=== PATIENT | male | born 1990 ===

== ENCOUNTER 2019-12-19 22:08 | Emergency (ER) | payer SELFPAY ==
[2019-12-19 22:12] VITALS: BP 126/77; PULSE 69; RESP 18; TEMP 36.4; O2SAT 99; BMI 35.9
--- NOTE | 2019-12-19 22:16 | XRR_ITS ---
PROCEDURE INFORMATION: Exam: XR Left Knee Exam date and time: 12/19/2019 10:24 PM Age: 28 years old Clinical indication: Injury or trauma; Other: Dislocation left knee; Patella or knee; Injury date: 12/19/2019; Patient HX: Left knee pain TECHNIQUE: Imaging protocol: XR Left knee. Views: 3 views. COMPARISON: CR Knee 3 views, LEFT* [id number] 01/20/2015 10:38 PM FINDINGS: Bones/joints: Normal. Soft tissues: Normal. XR/XR knee LT 3V* [id number] IMPRESSION: No acute findings.
--- NOTE | 2019-12-19 22:16 | ED_ITS ---
HPI - Extremity Injury (Lower) General: Chief Complaint: Fall Stated Complaint: knee and leg pain Time Seen by Provider: 12/19/19 22:10 Source: patient Mode of arrival: ambulatory Limitations: no limitations History of Present Illness: HPI Narrative: 28-year-old male patient comes in today with injury to the left knee. Patient was pushing a cart into the freezer at work and slipped on some ice during twisting of the knee he fell. Patient has a history of previous dislocation of the knee. Patient stated at that time he did not do any surgery or further evaluation of the knee. Patient reports no pain at this time. Patient was given 100 mg of fentanyl in route to the ER. No obvious deformity or dislocation is noted at this time. Review of Systems General: Reports: 10 or more systems reviewed and unremarkable except in HPI and below Musc: Reports: extremity pain and joint pain Physical Exam Const: COMMON NORMALS: no acute distress and patient oriented x3 GENERAL APPEARANCE: cooperative HENMT: COMMON NORMALS: normocephalic and Normal external nose present HEAD & SCALP: normal to inspection and normocephalic NOSE: Normal external nose present MOUTH: Normal oral and palatal mucosa present Eye: GENERAL EYE: appearance normal, both eyes and all related structures Neck/C-Spine: COMMON NORMALS: full ROM Chest: COMMONS NORMALS: normal inspection of the chest Resp: COMMON NORMALS: normal respiratory effort EFFORT & INSPECTION: Yes able to speak in complete sentences Cardio: COMMON NORMALS: regular rate and regular rhythm RATE: regular rate RHYTHM: regular rhythm GI: COMMON NORMALS: non-tender Back/Pelvis: COMMON NORMALS: thoracic and lumbar spine normal to inspection Extremity: NARRATIVE EXTREMITY EXAM: Joint line tenderness to the knee. No obvious dislocation is noted. Distal left lower extremity pulses and sensation are intact. Neuro: COMMON NORMALS: patient oriented x3 and moves all extremities Psych: COMMON NORMALS: mental status grossly normal and cooperative Skin: COMMON NORMALS: no rashes or lesions noted GENERAL SKIN EXAM: no rashes or lesions noted Course Vital Signs: Vital signs: Vital Signs Temperature 97.6 F 12/19/19 22:12 Pulse Rate 69 12/19/19 22:12 Respiratory Rate 18 12/19/19 22:12 Blood Pressure 126/77 12/19/19 22:12 Pulse Oximetry 99 12/19/19 22:12 MDM - Extremity Injury (Lower) MDM Narrative: Medical decision making narrative: Patient presents with possible dislocation of the left knee. EMS reported that knee was dislocated. They had put the knee in a splint prior to arrival. He was intact and in alignment on arrival to the ER. Some joint line tenderness was noted. No obvious swelling was noted. Distal pulses and sensations were intact. Differential diagnosis includes but not limited to dislocation of the knee, internal derangement of the knee, ligament versus meniscal tear patient had previous injury to the knee 4 to 5 years ago with a dislocation at that time he had to have it reduced in the ER. Patient did not have it followed up with at that time. Patient states he is usually very careful with his knee and usually does not have any problems with it. This was the first time he had had go out of place since the initial injury. X-ray noted no dislocation and normal alignment. Reviewed the exam with patient with recommendations for follow-up with orthopedics for further evaluation. Patient needs evaluation to rule out ligamentous injury. Patient reported understanding. Discharge Plan Discharge Patient Disposition: Home Clinical Impression: Injury of knee, left Qualifiers: Encounter type: initial encounter Qualified Code(s): S89.92XA - Unspecified injury of left lower leg, initial encounter Condition: Stable Prescriptions: New diclofenac sodium 75 mg tablet,delayed release (DR/EC) 75 mg PO BID Qty: 14 RF: 0 Discharge Orders: Discharge Order (Routine); Ordered 12/19/19 Ordered By: Moris Meyer Discharge Diet: Usual diet Discharge Activity: Use walker/crutches as instructed Patient Instructions: Knee Immobilizer (ED) Activity Restrictions/Additional Instructions: Follow-up with orthopedist for further evaluation of the knee. Use crutches until he can bear weight comfortably on the knee. Continue with use of the knee immobilizer until cleared by orthopedist. Return to the emergency department as needed for new concerns. Stand Alone Forms: Work/School Release Coding Level of Care Code ED Joint Supervisor for Chelsey Rand Exam Comprehensive
[2019-12-19 23:04] VITALS: BP 134/82; PULSE 79; RESP 16; O2SAT 100
--- NOTE | 2019-12-22 10:51 | DCPLANNER ---
senior quality manager had message to schedule a follow up appointment for patient with ortho. senior quality manager called the ortho clinic, spoke with Pat, gave clinic patients information. senior quality manager was told that patients information would be printed and reviewed. Clinic will call patient with appointment information.
--- NOTE | 2019-12-24 13:29 | DCPLANNER ---
Francie from ortho called medical case manager telling medical case manager that when clinic called patient to schedule appointment that patient declined appointment at this time, will call clinic if appointment is needed.
== END 2019-12-19 23:07 | disposition home or self-care (01) ==
PROVIDERS: Emergency Provider Nurse Practitioner Family
DX: S89.92XA Unspecified injury of left lower leg, initial encounter (principal); W00.0XXA Fall on same level due to ice and snow, initial encounter; Y99.0 Civilian activity done for income or pay
CPT/HCPCS: 12345; 29530; 73562; 99281; 99283; E0114

== ENCOUNTER 2021-02-03 00:23 | Inpatient (IN) | payer SELFPAY ==
[2021-02-03 00:32] VITALS: BP 145/98; PULSE 85; RESP 16; TEMP 36.7; O2SAT 99; BMI 35.9
--- NOTE | 2021-02-03 00:43 | ED.C_ITS ---
HPI - Psych General: Chief Complaint: Psychiatric Symptoms Stated Complaint: SI Time Seen by Provider: 02/03/21 00:25 Source: patient Mode of arrival: ambulatory Limitations: no limitations History of Present Illness: HPI Narrative: 30-year-old male states he has been under extreme stress at home. He states that he lives with his brother and they have had increasing tension. He states he denies any Dr. Robbfig states that after the first flight he drove around for 2 hours contemplating suicide he states he said the [employer] parking lot thinking about killing himself and decided to come here to get help denies any previous suicide attempt is not on any psychiatric medications. Associated symptoms: Reports depression Review of Systems Const: Denies: fever(s), chills, body aches or change in appetite Eyes: Denies: blurry vision or eye discomfort ENMT: Denies: throat pain or dental pain Card: Denies: chest pain Resp: Denies: dyspnea GI: Denies: abdominal pain, nausea, vomiting or diarrhea : Denies: dysuria Musc: Denies: neck pain or back pain Skin/Breast: Denies: rash Neuro: Denies: headache(s) Psych: Reports: depression Timur/Lymph: Denies: easy bruising All/Imm: Denies: urticaria Physical Exam Const: COMMON NORMALS: no acute distress, patient oriented x3 and healthy appearing HENMT: COMMON NORMALS: normocephalic and atraumatic HEAD & SCALP: normocephalic and atraumatic Eye: COMMON NORMALS: Equal, round and reactive pupils present and EOMs intact bilaterally PUPIL: Yes Equal, round and reactive pupils present Neck/C-Spine: COMMON NORMALS: full ROM and supple Chest: COMMONS NORMALS: normal inspection of the chest and normal palpation of entire chest wall Resp: COMMON NORMALS: normal respiratory effort, No retractions, No use of accessory muscles and clear to auscultation bilaterally AUSCULTATION: clear to auscultation bilaterally Cardio: COMMON NORMALS: regular rate, regular rhythm and No murmurs present (Cardio) RATE: regular rate RHYTHM: regular rhythm GI: COMMON NORMALS: Normal to inspection, nondistended, normoactive bowel sounds present, Soft to palpation, non-tender and no masses PALPATION: Yes Soft to palpation Extremity: COMMON NORMALS: normal to inspection and full ROM Neuro: COMMON NORMALS: patient oriented x3, moves all extremities and no focal motor deficits Psych: COMMON NORMALS: mental status grossly normal, Normal thought process present and cooperative THOUGHT PROCESS: Normal thought process present Skin: COMMON NORMALS: no rashes or lesions noted and no wounds GENERAL SKIN EXAM: no rashes or lesions noted Course Vital Signs: Vital signs: Vital Signs Temperature 98.1 F 02/03/21 00:32 Pulse Rate 85 02/03/21 00:32 Respiratory Rate 16 02/03/21 00:32 Blood Pressure 145/98 02/03/21 00:32 Pulse Oximetry 99 02/03/21 00:32 MDM - Psych MDM Narrative: Medical decision making narrative: Patient presents here with suicidal ideation he is medically cleared I placed on a 96-hour hold I spoke to Dr. España and will admit here to the psychiatric [facility]. Lab Data: Labs: Lab Results 02/03/21 02/03/21 02/03/21 00:53 00:53 00:53 WBC 12.2 10^3/uL H 10 ^3/uL (4.0-10.0) RBC 5.93 10^6/uL H 10 ^6/uL (4.1-5.3) Hgb 15.9 g/dL g/dL (11.7-16.6) Hct 48.8 % % (42.0-52.0) MCV 82.3 fl fl (80-94) MCH 26.8 pg L pg (28.0-34.0) MCHC 32.6 g/dL g/dL (30.0-36.0) RDW 12.9 % % (12.1-15.1) Plt Count 352 10^3/cmm 10^3 /cmm (130-400) MPV 10.6 fL H fL (7.4-10.4) Neut % (Auto) 57.2 % % Lymph % (Auto) 30.6 % % [place] % (Auto) 8.6 % % Eos % (Auto) 2.9 % % Baso % (Auto) 0.5 % % Neut # (Auto) 7.01 10^3/uL 10^3 /uL (1.8-7.7) Lymph # (Auto) 3.7 10^3/uL 10^3/ uL (0.8-4.8) [place] # (Auto) 1.1 10^3/uL H 10^ 3/uL (0.2-0.9) Eos # (Auto) 0.4 10^3/uL 10^3/ uL (0.0-0.8) Baso # (Auto) 0.1 10^3/uL 10^3/ uL (0.0-0.1) Nucleated RBC % (a uto) 0 % % Nucleated RBCs # 0.0 /100WBC /100W BC Sodium 141 mmol/L mmol/L (136-145) Potassium 3.8 mmol/L mmol/L (3.5-5.1) Chloride 102 mmol/L mmol/L (98-107) Carbon Dioxide 29 mmol/L mmol/L (22-29) Anion Gap 13.8 (5-19) BUN 11 mg/dL mg/dL (6-20) Creatinine 0.8 mg/dL mg/dL (0.7-1.2) GFR Calculation 112.8 mL/min mL/m in (90-130) Glucose 76 mg/dL mg/dL (65-115) Calculated Osmolal ity 290 mOsm/kg mOsm/ kg (285-295) Calcium 8.7 mg/dL mg/dL (8.5-10.5) Total Bilirubin 0.2 mg/dL mg/dL (0.15-1.2) AST 26 U/L U/L (0-40) ALT 41 U/L U/L (0-41) Alkaline Phosphata se 95 IU/L IU/L (40-130) Total Protein 7.3 g/dL g/dL (6.6-8.7) Albumin 4.4 g/dL g/dL (3.5-5.2) Globulin 2.9 g/dL g/dL (1.3-4.6) Salicylates < 0.3 mg/dL L mg/ dL (3-10) Urine Opiates Scre en Negative ng/mL ng /mL (Negative) Acetaminophen < 5.0 ug/mL L ug/ mL (10-30) Ur Barbiturates Sc reen Negative ng/mL ng /mL (Negative) Ur Phencyclidine S crn Negative ng/mL ng /mL (Negative) Ur Amphetamines Sc reen Negative ng/mL ng /mL (Negative) U Benzodiazepines Scrn Negative ng/mL ng /mL (Negative) Urine Cocaine Scre en Negative ng/mL ng /mL (Negative) U Marijuana (THC) Screen Positive ng/mL H ng/mL (Negative) Ethyl Alcohol < 10 mg/dL mg/dL (0-10) Discharge Plan Discharge Patient Disposition: Admitted As Inpatient Clinical Impression: Suicidal ideation Condition: Stable Coding Level of Care Code ED Regional Telecommunications Specialist for Chelsey Fwd Exam Comprehensive
[2021-02-03] MEDS: LORazepam 2 mg Tablet PO (01:03)
[2021-02-03 01:05] LABS: Basophils # 0.1 10^3/uL (0.0-0.1); Basophils % 0.5 %; Eosinophils # 0.4 10^3/uL (0.0-0.8); Eosinophils % 2.9 %; Hematocrit 48.8 % (42.0-52.0); Hemoglobin 15.9 g/dL (11.7-16.6); Lymphocytes # 3.7 10^3/uL (0.8-4.8); Lymphocytes % 30.6 %; Mean Corpuscular HGB Conc 32.6 g/dL (30.0-36.0); Mean Corpuscular Hemoglobin 26.8 pg (28.0-34.0); Mean Corpuscular Volume 82.3 fl (80-94); Mean Platelet Volume 10.6 fL (7.4-10.4); Monocytes # 1.1 10^3/uL (0.2-0.9); Monocytes % 8.6 %; Neutrophils # 7.01 10^3/uL (1.8-7.7); Neutrophils % 57.2 %; Nucleated Red Blood Cells % 0 %; Platelet Count 352 10^3/cmm (130-400); Red Blood Count 5.93 10^6/uL (4.1-5.3); Red Cell Distribution Width 12.9 % (12.1-15.1); White Blood Count 12.2 10^3/uL (4.0-10.0)
[2021-02-03 01:22] LABS: Amphetamines Screen Urine Negative (Negative); Barbiturates Screen Urine Negative (Negative); Benzodiazepines Screen Urine Negative (Negative); Cocaine Screen Urine Negative (Negative); Opiate Screen Urine Negative (Negative); PCP Screen Urine Negative (Negative); THC Screen Urine Positive (Negative)
[2021-02-03 01:24] LABS: Alanine Aminotransferase 41 U/L (0-41); Albumin Level 4.4 g/dL (3.5-5.2); Alkaline Phosphatase 95 IU/L (40-130); Anion Gap 13.8 (5-19); Aspartate Amino Transferase 26 U/L (0-40); Blood Urea Nitrogen 11 mg/dL (6-20); Calcium 8.7 mg/dL (8.5-10.5); Carbon Dioxide 29 mmol/L (22-29); Chloride 102 mmol/L (98-107); Globulin 2.9 g/dL (1.3-4.6); Glomerular Filtration Rate 112.8 mL/min (90-130); Glucose 76 mg/dL (65-115); Osmolality Calculated 290 mOsm/kg (285-295); Potassium 3.8 mmol/L (3.5-5.1); Sodium 141 mmol/L (136-145); Total Bilirubin 0.2 mg/dL (0.15-1.2); Total Protein 7.3 g/dL (6.6-8.7)
[2021-02-03 01:28] LABS: Acetaminophen < 5.0 ug/mL (10-30); Alcohol Level < 10 mg/dL (0-10); Salicylate < 0.3 mg/dL (3-10)
[2021-02-03 02:54] VITALS: BP 125/72; PULSE 86; RESP 20; TEMP 36.6; O2SAT 100
[2021-02-03 02:59] VITALS: BP 140/96; PULSE 88; RESP 18; TEMP 36.6; O2SAT 95
[2021-02-03 06:00] VITALS: BP 129/79; PULSE 80; RESP 16; TEMP 36.7; O2SAT 96
[2021-02-03] MEDS: diclofenac 75 mg DR Tablet PO ×2 (10:27→17:39)
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
[2021-02-03] MEDS: nicotine 21 mg Patch 1 PATCH TRANSDERMA (12:12)
[2021-02-03 14:00] VITALS: BP 119/82; PULSE 81; RESP 18; TEMP 36.3; O2SAT 95
[2021-02-03] MEDS: nicotine 2 mg Gum BUCCAL (20:42)
[2021-02-03] MEDS: BuSPIRONE 10 mg Tablet 15 MG PO (21:27)
[2021-02-03 22:00] VITALS: BP 108/67; PULSE 87; RESP 17; TEMP 36.9; O2SAT 98
[2021-02-04 06:00] VITALS: RESP 17
[2021-02-04] MEDS: BuSPIRONE 10 mg Tablet 15 MG PO ×2 (09:11→21:11)
[2021-02-04] MEDS: diclofenac 75 mg DR Tablet PO ×2 (09:12→18:48)
--- NOTE | 2021-02-04 10:12 | W.PM.NPUPNS ---
Subjective NPU Subjective: Interval history: Patient presents today reporting that he is feeling little better. He reports that he did get some rest and that he believes medication might be helpful. We discussed seeing how he does over the next 24 hours and likely discharge by Sunday but possibly sooner if he is feeling better and safe to return home. 1 possibility he reports is that he could go to a friend's house as he is working with the social work team to assist with resources to assist with housing. As he is not sure returning to the home environment will be the best option for him to continue to do well once he leaves. Mental Status Exam MSE Comments: This is an obese, male, with fairly light brown skin, though he does not understand specifically his ethnicity that yields the dark skin, with hospital scrubs on, with appropriate grooming, and eye contact. No abnormal movements except for mild psychomotor retardation. Cooperative with exam in mild distress. Speech was decreased rate and volume. Mood described as a little better; affect congruent. Thought process, organized. Thought content: patient denied any suicidal or homicidal ideation, there were no delusions reported or noted, patient denied any auditory or visual hallucinations. Attention, concentration, and memory appear intact but were not formally tested. He is alert and oriented times three. Insight and judgment are fair, impulse control limited. Vitals/I&O/Wt Last Vital Signs Temp 98.4 F 02/03/21 22:00 Pulse 87 02/03/21 22:00 Resp 17 02/04/21 06:00 BP 108/67 02/03/21 22:00 Pulse Ox 98 02/03/21 22:00 Data NPU : 02/03/21 00:53 02/03/21 00:53 A&P Additional A&P Information (1) Suicidal ideation: (2) Anxiety: (3) Depression: (4) Sibling relational problem: (5) Cannabis abuse: Additional A&P Information This is a 30-year-old, [place] male, with a long history of trauma, but limited mental health treatment, who presents with anxiety, depression, cannabis use, and recent fight/conflict in his family that led to some suicidal thoughts, who presents open to some medication for his anxiety. RECOMMENDATION AND PLAN: 1. Continue current medication. Start Buspar 15 mg po bid. 2. Encourage individual, group, and milieu therapy. 3. Continue q-15 minute checks for safety. 4. Encourage sober living treatment after discharge, at the highest level of care, to which he is willing to commit. Involuntary Hold Information 96 Hour Hold: 96 Hour Involuntary Admission: Yes 96 Hour Hold Ending Date: 02/09/21 96 Hour Hold Ending Time: 00:53 Attestations NPU Medical Necessity Statement*: Inpatient hospitalization is medically necessary and the clinically appropriate intervention, at this time. We will monitor medications and make changes as indicated. Likely length of stay is 1-3 days. Coding Level of Care Code Acute Auto Fleet Manager for Chelsey Rand
[2021-02-04 14:00] VITALS: RESP 18
[2021-02-04] MEDS: loperamide 2 mg Capsule PO (20:13)
[2021-02-04 20:25] VITALS: BP 145/79; PULSE 61; RESP 16; TEMP 36.8; O2SAT 96
[2021-02-05 06:00] VITALS: BP 108/68; PULSE 72; RESP 16; TEMP 36.8; O2SAT 96
[2021-02-05] MEDS: diclofenac 75 mg DR Tablet PO (08:53)
[2021-02-05] MEDS: BuSPIRONE 10 mg Tablet 15 MG PO (08:54)
[2021-02-05] MEDS: nicotine 2 mg Gum BUCCAL (08:54)
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
[2021-02-05 12:11] VITALS: BP 108/68; PULSE 72; RESP 16; TEMP 36.8; O2SAT 96
== END 2021-02-05 12:15 | disposition home or self-care (01) | DRG 880 ==
LOC: ER 01:08 → NP 02:47
PROVIDERS: Admitting Provider Psychiatry & Neurology Psychiatry; Emergency Provider Emergency Medicine; Visit Provider Psychiatry & Neurology Psychiatry
DX: F41.9 Anxiety disorder, unspecified (principal); R45.851 Suicidal ideations; F32.A Depression, unspecified; F12.10 Cannabis abuse, uncomplicated; E66.9 Obesity, unspecified; Z68.35 Body mass index [BMI] 35.0-35.9, adult; Z63.8 Other specified problems related to primary support group; F17.210 Nicotine dependence, cigarettes, uncomplicated; Z62.819 Personal history of unspecified abuse in childhood
CPT/HCPCS: 80053; 80306; 80307; 85025; 97150; 97165; 99285

== ENCOUNTER 2021-04-24 09:40 | Emergency (ER) | payer SELFPAY ==
[2021-04-24 09:50] VITALS: BP 132/76; PULSE 81; RESP 18; TEMP 36.6; O2SAT 97; BMI 34.2
--- NOTE | 2021-04-24 10:13 | ED_ITS ---
HPI - Extremity Problem General: Chief complaint: Extremity Problem,Nontraumatic Stated complaint: Right hip pain Time Seen by Provider: 04/24/21 09:56 History of Present Illness: Patient is a 30-year-old male comes to the ED with lower back pain that radiates down into the right hip and right thigh. He has been dealing with the symptoms for the past 2 months. They have continued to progress and get worse. Last couple days he has had increased pain and hurts when he is up walking. Denies any bladder or bowel incontinence, weakness to lower extremities or any pelvic anesthesia. Associated symptoms: Deny chest pain, fever(s) or rash Review of Systems Const: Denies: fever(s), chills or fatigue Eyes: Denies: change in vision or eye discomfort ENMT: Denies: throat pain, odynophagia, nasal discharge or nasal congestion Card: Denies: chest pain, palpitations, edema, swelling of feet/ankles, dyspnea on exertion or orthopnea Resp: Denies: dyspnea, productive cough or non-productive cough GI: Denies: abdominal pain, nausea, vomiting, diarrhea, constipation or hematochezia : Denies: flank pain, difficulty urinating, dysuria or hematuria Musc: Denies: neck pain, back pain or extremity swelling Skin/Breast: Denies: rash or new lesions Neuro: Denies: headache(s), numbness in extremities or weakness in extremities PFS ED PFSH: Medical History (Updated 04/24/21 @ 10:28 by YEISON Navarro) No pertinent family history Surgical History (Updated 04/24/21 @ 10:25 by YEISON Navarro) No pertinent past surgical history Physical Exam Const: COMMON NORMALS: no acute distress, patient oriented x3 and alert GENERAL APPEARANCE: cooperative and comfortable HENMT: COMMON NORMALS: normocephalic HEAD & SCALP: normocephalic MOUTH: Normal oral and palatal mucosa present THROAT: posterior oropharynx normal and uvula midline Neck/C-Spine: COMMON NORMALS: supple GENERAL: Yes normal visual inspection Resp: COMMON NORMALS: normal respiratory effort, No retractions, No use of accessory muscles and clear to auscultation bilaterally AUSCULTATION: clear to auscultation bilaterally Cardio: COMMON NORMALS: regular rate, regular rhythm, S1 normal heart sound present, S2 normal heart sound present, No gallops present (Cardio), No clicks present (Cardio), No murmurs present (Cardio) and Peripheral pulses 2+ throughout RATE: regular rate RHYTHM: regular rhythm HEART SOUNDS: S1 normal heart sound present and S2 normal heart sound present PERIPHERAL PULSES: Peripheral pulses 2+ throughout GI: COMMON NORMALS: Normal to inspection, nondistended, normoactive bowel sounds present, Soft to palpation, non-tender and no masses PALPATION: Yes Soft to palpation : COMMON NORMALS: Yes no CVA tenderness BLADDER/KIDNEY EXAM: Yes no CVA tenderness Back/Pelvis: COMMON NORMALS: no CVA tenderness LUMBAR SPINE/LOWER BACK: Yes paraspinal muscle tenderness Lumbar paraspinal muscle tenderness: right Extremity: COMMON NORMALS: normal to inspection and no pedal edema Neuro: COMMON NORMALS: patient oriented x3 and moves all extremities SENSORIUM/ORIENTATION: Yes alert Skin: GENERAL SKIN EXAM: dry skin Course Vital Signs: Vital signs: Vital Signs Temperature 97.9 F 04/24/21 10:49 Pulse Rate 64 04/24/21 10:49 Respiratory Rate 14 04/24/21 10:49 Blood Pressure 112/61 04/24/21 10:49 Pulse Oximetry 97 04/24/21 10:49 MDM - Extremity (Nontraumatic) Medical Decision Making Patient is a 30-year-old male comes to the ED with right lumbar pain that radiates down her right hip and right upper leg patient denies any acute injury or trauma he has been dealing with this for the past 2 months. Appears in no acute distress. Denies any cauda equina symptoms. Vitals are stable. Patient was given a dose of Toradol, Solu-Medrol and Norflex while here in the ED. Patient diagnosed with sciatica and discharged home with a prescription for celebrex, prednisone and Flexeril. Follow-up with PCP in 7 to 10 days reevaluation. Return ED precautions given. Patient agreed with plan. Discharge Plan Discharge Patient Disposition: Home Clinical Impression: Sciatica Qualifiers: Laterality: right Qualified Code(s): M54.31 - Sciatica, right side Condition: Stable Prescriptions: New Celebrex 100 mg capsule 100 mg PO BID PRN (Reason: pain) Qty: 20 0RF cyclobenzaprine 10 mg tablet 10 mg PO BID PRN (Reason: muscle spasm and pain) Qty: 20 0RF prednisone 5 mg tablets,dose pack See Rx Instructions .ROUTE .COMPLEX Qty: 21 0RF Rx Instructions: prednisone 5 mg: take 8 tablets (40 mg) on Day 1; 7 tablets (35 mg) on Day 2; then decrease by 1 tablet every day until finished No Action diclofenac sodium 75 mg tablet,delayed release (DR/EC) 75 mg PO BID Qty: 14 0RF albuterol sulfate aerosol 2 puff inhalation BID PRN (Reason: Shortness Of Breath Or Wheezing) 0RF buspirone 10 mg Tablet 15 mg PO 0900,2100 30 Days Qty: 90 1RF Discharge Orders: Discharge ED (Routine); Ordered 04/24/21 Ordered By: Diego Sibley Discharge Diet: Regular Discharge Activity: Increase activity as tolerated Patient Instructions: Sciatica (ED), Lower Back Exercises (ED) Activity Restrictions/Additional Instructions: Follow-up with primary care physician as directed in 7 to 10 days reevaluation. Take medications as prescribed. Apply cold pack or heat on sore area to help with symptoms. Stretch lower back and daily. Return to the ER or your medical provider if condition worsens. Please read and understand discharge instructions. Thank you for choosing [facility] for your healthcare needs today. Please realize this is an emergency room and that we are providing you with a medical screening exam and this may not be complete and all inclusive of all the testing and or work up that you may need to determine your ailment or severity of your illness. It is very important that you follow up as instructed or that you return to the Emergency Department should you have concerns or if your condition changes or worsens in any way. Coding Level of Care Code ED Transfusion Aide for Chelsey Rand Exam Comprehensive
[2021-04-24] MEDS: ketorolac 60 mg/2 mL INJ IM (10:35)
[2021-04-24] MEDS: orphenadrine 30 mg/mL Inj 2 mL 60 MG IM (10:36)
[2021-04-24 10:48] VITALS: BP 112/61; PULSE 64; RESP 14; TEMP 36.6; O2SAT 97
[2021-04-24 10:49] VITALS: BP 112/61; PULSE 64; RESP 14; TEMP 36.6; O2SAT 97
== END 2021-04-24 10:45 | disposition home or self-care (01) ==
PROVIDERS: Emergency Provider Physician Assistant
DX: M54.31 Sciatica, right side (principal)
CPT/HCPCS: 96372; 99283; J1885; J2360; J2930

== ENCOUNTER 2021-09-05 13:20 | Emergency (ER) | payer SELFPAY ==
[2021-09-05 13:32] VITALS: BP 153/128; PULSE 83; RESP 22; TEMP 35.9; O2SAT 97; BMI 34.5
--- NOTE | 2021-09-05 13:45 | ED_ITS ---
HPI - Dental/Oral General: Chief complaint: Dental/Oral Stated complaint: Severe Mouth pain Time Seen by Provider: 09/05/21 13:49 History of Present Illness: Patient is a 30-year-old male comes to the ED with dental pain. Symptoms started approximate hour before arrival. Patient was eating some food and then felt some pain in his back right upper molar. He rates the pain currently a 10 out of 10 and it radiates up into right side of face and head. He has not taken anything for pain before coming to the ED. Associated symptoms: Denies fever(s) or odynophagia Review of Systems Const: Denies: fever(s), chills or fatigue Eyes: Denies: change in vision or eye discomfort ENMT: Reports: dental pain; Denies: throat pain, odynophagia, nasal discharge or nasal congestion Card: Denies: chest pain, palpitations, edema, swelling of feet/ankles, dyspnea on exertion or orthopnea Resp: Denies: dyspnea, productive cough or non-productive cough GI: Denies: abdominal pain, nausea, vomiting, diarrhea, constipation or hematochezia : Denies: flank pain, difficulty urinating, dysuria or hematuria Musc: Denies: neck pain, back pain or extremity swelling Skin/Breast: Denies: rash or new lesions Neuro: Denies: headache(s), numbness in extremities or weakness in extremities PFS ED PFSH: Medical History No pertinent family history Surgical History No pertinent past surgical history Physical Exam Const: COMMON NORMALS: no acute distress, patient oriented x3 and alert GENERAL APPEARANCE: cooperative HENMT: COMMON NORMALS: normocephalic HEAD & SCALP: normocephalic MOUTH: Normal oral and palatal mucosa present TEETH & GINGIVA: Yes abnormal tooth and associated gingiva upper right third molar tender and with associated gingival edema THROAT: posterior oropharynx normal and uvula midline Neck/C-Spine: COMMON NORMALS: supple GENERAL: Yes normal visual inspection Resp: COMMON NORMALS: normal respiratory effort, No retractions, No use of accessory muscles and clear to auscultation bilaterally AUSCULTATION: clear to auscultation bilaterally Cardio: COMMON NORMALS: regular rate, regular rhythm, S1 normal heart sound present, S2 normal heart sound present, No gallops present (Cardio), No clicks present (Cardio), No murmurs present (Cardio) and Peripheral pulses 2+ throughout RATE: regular rate RHYTHM: regular rhythm HEART SOUNDS: S1 normal heart sound present and S2 normal heart sound present PERIPHERAL PULSES: Peripheral pulses 2+ throughout GI: COMMON NORMALS: Normal to inspection, nondistended, normoactive bowel sounds present, Soft to palpation, non-tender and no masses PALPATION: Yes Soft to palpation : COMMON NORMALS: Yes no CVA tenderness BLADDER/KIDNEY EXAM: Yes no CVA tenderness Back/Pelvis: COMMON NORMALS: no CVA tenderness Extremity: COMMON NORMALS: normal to inspection Neuro: COMMON NORMALS: patient oriented x3 and moves all extremities SENSORIUM/ORIENTATION: Yes alert Skin: GENERAL SKIN EXAM: dry skin Course Vital Signs: Vital signs: Vital Signs Temperature 96.7 F L 09/05/21 13:32 Pulse Rate 83 09/05/21 13:32 Respiratory Rate 22 H 09/05/21 13:32 Blood Pressure 153/128 09/05/21 13:32 Pulse Oximetry 97 09/05/21 13:32 [facility] - Dental/Oral Medical Decision Making Patient is a 30-year-old male comes to the ED with dental pain. Vitals are stable. Patient appears nontoxic in no acute distress. He has some associated gingival edema and tenderness of the right upper third molar. Patient diagnosed with dental pain and discharged home with a prescription for clindamycin and Celebrex. He was told to follow-up with dentist as soon as possible to have dental pain further evaluated and treated. Return to ED precautions. Patient understood and agreed with plan. Discharge Plan Discharge Patient Disposition: Home Clinical Impression: Pain, dental Condition: Stable Prescriptions: New clindamycin HCl 150 mg capsule 300 mg PO QID 7 Days Qty: 56 0RF Celebrex 100 mg capsule 100 mg PO BID PRN (Reason: pain) Qty: 30 0RF No Action diclofenac sodium 75 mg tablet,delayed release (DR/EC) 75 mg PO BID Qty: 14 0RF albuterol sulfate aerosol 2 puff inhalation BID PRN (Reason: Shortness Of Breath Or Wheezing) 0RF buspirone 10 mg Tablet 15 mg PO 0900,2100 30 Days Qty: 90 1RF Celebrex 100 mg capsule 100 mg PO BID PRN (Reason: pain) Qty: 20 0RF cyclobenzaprine 10 mg tablet 10 mg PO BID PRN (Reason: muscle spasm and pain) Qty: 20 0RF prednisone 5 mg tablets,dose pack See Rx Instructions .ROUTE .COMPLEX Qty: 21 0RF Rx Instructions: prednisone 5 mg: take 8 tablets (40 mg) on Day 1; 7 tablets (35 mg) on Day 2; then decrease by 1 tablet every day until finished Discharge Orders: Discharge ED (Routine); Ordered 09/05/21 Ordered By: Diego Sibley Discharge Diet: Regular Discharge Activity: Increase activity as tolerated Patient Instructions: Toothache (ED) Activity Restrictions/Additional Instructions: Follow-up with dentist as soon as possible to have dental pain evaluated and treated. Take medications as prescribed. Return to the ER or your medical provider if condition worsens. Please read and understand discharge instructions. Thank you for choosing [facility] for your healthcare needs today. Please realize this is an emergency room and that we are providing you with a medical screening exam and this may not be complete and all inclusive of all the testing and or work up that you may need to determine your ailment or severity of your illness. It is very important that you follow up as instructed or that you return to the Emergency Department should you have concerns or if your condition changes or worsens in any way. Coding Level of Care Code ED Retail Brand Ambassador for Chelsey Rand Exam Comprehensive
[2021-09-05] MEDS: HYDROcodone-acetaminophen 7.5-325 mg Tablet 1 TAB PO (13:52)
[2021-09-05] MEDS: clindamycin 150 mg Capsule 300 MG PO (13:52)
== END 2021-09-05 14:06 | disposition home or self-care (01) ==
PROVIDERS: Emergency Provider Physician Assistant
DX: K08.89 Other specified disorders of teeth and supporting structures (principal)
CPT/HCPCS: 99283

== ENCOUNTER 2021-10-20 21:06 | Emergency (ER) | payer SELFPAY ==
[2021-10-20 21:29] VITALS: BP 127/79; PULSE 81; RESP 18; TEMP 36.9; O2SAT 97; BMI 34.5
--- NOTE | 2021-10-20 21:59 | W.ED.GENADLT ---
HPI - General Adult General: Chief complaint: General Medical Stated complaint: Sore throat/white spots x7 days Time Seen by Provider: 10/20/21 21:59 History of Present Illness: 30-year-old male patient comes in today with complaints of sore throat for 1 week. Patient has been doing salt water gargles and [id number] medications with minimal relief. Patient appears nontoxic. Patient appears in mild pain. Review of Systems ENMT: Reports: enlarged tonsils and odynophagia PFSH ED PFSH: Medical History No pertinent family history Surgical History No pertinent past surgical history Physical Exam Const: COMMON NORMALS: alert HENMT: COMMON NORMALS: normocephalic HEAD & SCALP: normocephalic THROAT: abnormal tonsil bilateral erythema, exudates and hypertrophy Neck/C-Spine: COMMON NORMALS: full ROM Lymph: LYMPHATIC: lymphadenopathy (Anterior cervical) Resp: COMMON NORMALS: normal respiratory effort Cardio: COMMON NORMALS: regular rate RATE: regular rate GI: COMMON NORMALS: Soft to palpation and non-tender PALPATION: Yes Soft to palpation Extremity: COMMON NORMALS: normal to inspection Neuro: SENSORIUM/ORIENTATION: Yes alert Skin: COMMON NORMALS: turgor normal GENERAL SKIN EXAM: turgor normal Course Vital Signs: Vital signs: Vital Signs Temperature 98.4 F 10/20/21 22:02 Pulse Rate 81 10/20/21 22:02 Respiratory Rate 18 10/20/21 22:02 Blood Pressure 127/79 10/20/21 22:02 Pulse Oximetry 97 10/20/21 22:02 Oxygen Delivery Me thod 10/20/21 22:02 [facility] - General Adult Medical Decision Making 30-year-old male patient comes in today for complaints of swelling and exudate to bilateral tonsils. On exam we note the exudate and hypertrophy of the bilateral tonsils. Patient also some anterior cervical lymphadenopathy. Differential diagnosis includes infectious mono, exam tonsillitis bacterial, strep pharyngitis. Strep test was negative. We will treat patient for bacterial exudative tonsil infection. Patient was given 10 mg dexamethasone IM for pain and discomfort. Patient was also given clindamycin for further treatment. Patient reported understanding of care plan and need for follow-up. Lab Data Laboratory Results Group A Strep Rapid Negative (Negative) 10/20/21 21:35 Discharge Plan Discharge Patient Disposition: Home Clinical Impression: Exudative tonsillitis Condition: Stable Prescriptions: New clindamycin HCl 300 mg capsule 300 mg PO TID 7 Days Qty: 21 0RF No Action diclofenac sodium 75 mg tablet,delayed release (DR/EC) 75 mg PO BID Qty: 14 0RF albuterol sulfate aerosol 2 puff inhalation BID PRN (Reason: Shortness Of Breath Or Wheezing) buspirone 10 mg Tablet 15 mg PO 0900,2100 30 Days Qty: 90 1RF Celebrex 100 mg capsule 100 mg PO BID PRN (Reason: pain) Qty: 20 0RF cyclobenzaprine 10 mg tablet 10 mg PO BID PRN (Reason: muscle spasm and pain) Qty: 20 0RF prednisone 5 mg tablets,dose pack See Rx Instructions .ROUTE .COMPLEX Qty: 21 0RF Rx Instructions: prednisone 5 mg: take 8 tablets (40 mg) on Day 1; 7 tablets (35 mg) on Day 2; then decrease by 1 tablet every day until finished Celebrex 100 mg capsule 100 mg PO BID PRN (Reason: pain) Qty: 30 0RF Discharge Orders: Discharge ED (Routine); Ordered 10/20/21 Ordered By: Moris Meyer Discharge Diet: Usual diet Discharge Activity: Increase activity as tolerated Patient Instructions: Tonsillitis (ED) Activity Restrictions/Additional Instructions: Drink plenty of water. Take acetaminophen and ibuprofen for pain and discomfort. Take antibiotic 1 capsule 3 times a day for the next 7 days. Follow-up with primary care for further instruction. Return to ER for new concerns or worsening symptoms. Coding Level of Care Code ED Family Services Specialist for Chelsey Rand
[2021-10-20 22:02] VITALS: BP 127/79; PULSE 81; RESP 18; TEMP 36.9; O2SAT 97
[2021-10-20 22:04] LABS: Rapid Strep A Test Negative (Negative)
[2021-10-20] MEDS: clindamycin 150 mg Capsule 300 MG PO (22:20)
[2021-10-20] MEDS: dexamethasone 10 mg/mL INJ IM (22:20)
== END 2021-10-20 22:25 | disposition home or self-care (01) ==
PROVIDERS: Emergency Medicine; Emergency Provider Nurse Practitioner Family
DX: J03.90 Acute tonsillitis, unspecified (principal)
CPT/HCPCS: 87081; 87880; 96372; 99284; J1100